=== PATIENT | female | born 1975 | race Two or more races ===

== ENCOUNTER 2018-05-04 06:18 | Day surgery (SDC) | payer OTHER ==
[2018-05-04] VITALS (11 sets, daily range): BP systolic 92–124; BP diastolic 54–73
[~2018-05-04] VITALS: Ht 162.6 cm; Wt 68.0 kg
[~2018-05-04 06:18] MED LIST: Clindamycin 600mg 50 ML IV ONE; NKM; celeBREX 200mg Cap **SURGERY PATIENTS ONLY ORAL ONE; oxyCONTIN 20mg tab ORAL ONE
--- NOTE | 2018-05-04 07:17 | Pre-Procedure Note/Attestation ---
Pre-Procedure Note/Attestation Complete Prior to Procedure Planned Procedure: right Procedure Narrative: knee arthroscopy acl reconstruction, possible medial menisectomy Attestation I attest that I discussed the nature of the procedure; its benefits; risks and complications; and alternatives (and the risks and benefits of such alternatives ), prior to the procedure, with the patient (or the patient's legal business office representative). I attest that, if there was a reasonable possibility of needing a blood transfusion, the patient (or the patient's legal business office representative) was given the [facility] standardized written summary, pursuant to the [place] Blood Safety Act ([place] Health and Safety Code # 1645, as amended). I attest that I re-evaluated the patient just prior to the surgery and that there has been no change in the patient's H&P, except as documented below: Mariusz Mars MD May 04, 2018 07:17
--- NOTE | 2018-05-04 07:19 | Operative Note - PDOC ---
Operative Note Operative Note Pre-op Diagnosis: right knee acl tear and medial meniscus tear Procedure: see op report Post-op Diagnosis: same as pre-op plus Operative Findings: consistent w/pre-op dx studies Anesthesia: general Specimen: none Complications: none Condition: stable Estimated Blood Loss: none Implant(s) used?: Yes Mariusz Mars MD May 04, 2018 07:18
[2018-05-04] MEDS ORDERED: EPINEPHrine 1mg/1ml Amp ONE ×2 (09:00→09:09)
[2018-05-04] MEDS ORDERED: Bupivacaine w/Epi 0.25% 30ml Vial INJ ONE ×3 (09:00→09:10)
[2018-05-04] MEDS ORDERED: Lidocaine 1% 10mg/ml/Epi 0.005mg/ml 30ml vial INJ ONE (09:00)
[2018-05-04] MEDS ORDERED: Ketorolac 30mg Inj ONE ×2 (09:00→09:09)
[2018-05-04] MEDS ORDERED: Morphine Sulfate PF 0 ML ONE ×2 (09:00→09:09)
[2018-05-04] MEDS ORDERED: Kenalog-40 1ml Vial ONE ×2 (09:00→09:09)
[2018-05-04] MEDS ORDERED: Bacitracin 50000 Units Vial ONE (09:01)
[2018-05-04] MEDS ORDERED: NeoSporin Gu Irrig 1ml Amp IRRIG ONE (09:01)
[2018-05-04] MEDS ORDERED: Midazolam 2mg/2ml Inj ONE (09:07)
[2018-05-04] MEDS ORDERED: fentaNYL 100 mcg/2 mL IV ONE ×2 (09:07→10:10)
[2018-05-04] MEDS ORDERED: Bupivacaine 0.5% Inj 30 ml vial INJ ONE (09:09)
[2018-05-04] MEDS ORDERED: Acetaminophen (Non formulary) 100 ML IV ONE (09:15)
[2018-05-04] MEDS ORDERED: Clindamycin 600mg 50 ML IV ONE (09:28)
[2018-05-04] MEDS ORDERED: Propofol 200mg/20ml IV ONE (09:49)
[2018-05-04] MEDS ORDERED: Metoclopramide 10mg/2ml Inj ONE (09:49)
[2018-05-04] MEDS ORDERED: Lidocaine 1% MPF 10mg/ml 5ml ONE (09:49)
--- NOTE | 2018-05-04 10:18 | Anethesia Preoperative Eval ---
Anesthesia Pre-op PMH/ROS General Date of Evaluation: May 04, 2018 Time of Evaluation: 09:50 Anesthesiologist: chasity ASA Score: ASA 1 Mallampati Score Class I : Soft palate, uvula, fauces, pillars visible Class II: Soft palate, uvula, fauces visible Class III: Soft palate, base of uvula visible Class IV: Only hard plate visible Mallampati Classification: Class II Surgeon: eddi Diagnosis: acl tear Surgical Procedure: right acl tear Anesthesia History: none Family History: no anesthesia problems Allergies: Coded Allergies: PENICILLINS (Verified Allergy, Severe, 05/03/18) skin rash SULFA (SULFONAMIDE ANTIBIOTICS) (Verified Allergy, Severe, 05/04/18) SKIN RASH Uncoded Allergies: SULFA (Allergy, Severe, 05/03/18) SKIN RASH Medications: see eMAR Patient NPO?: Yes NPO Date: May 03, 2018 NPO Time: 23:59 Past Medical History Cardiovascular: Denies: HTN, CAD, [place], valve dz, arrhythmia, other Pulmonary: Denies: asthma, COPD, ADDIS, other Gastrointestinal/Genitourinary: Denies: GERD, CRI, ESRD, other Neurologic/Psychiatric: Denies: dementia, CVA, depression/anxiety, TIA, other Endocrine: Denies: DM, hypothyroidism, steroids, other HEENT: Denies: cataract (L), cataract (R), glaucoma, [place] (L), [place] (R), other Hematology/Immune: Denies: anemia, DVT, bleeding disorder, other Musculoskeletal/Integumentary: Denies: OA, RA, DJD, DDD, edema, other PSxH Narrative: none Anesthesia Pre-op Phys. Exam Physician Exam Last Vital Signs Date Time Temp Pulse Resp B/P (MAP) Pulse Ox O2 Delivery O2 Flow Rate FiO2 05/04/18 07:32 97.1 50 20 92/54 99 Room Air 97.1 Constitutional: NAD Neurologic: CN 2-12 intact Cardiovascular: RRR Respiratory: CTA Gastrointestinal: S/NT/ND Airway Exam Mallampati Classification 2 Mallampati Score: Class II MO: full ROM: full Dentures: no upper, no lower Anesthesia Pre-op A/P Labs Urine Test Test 05/04/18 06:30 Urine HCG, Qualitative Negative (NEGATIVE) Studies Pre-op Studies: EKG - sr Risk Assessment & Plan Plan: general/block Status Change Before Surgery: No Pre-Antibiotics Drug: cleocin Given Within 1 Hr of Incision: Yes Time Given: 09:40 Bailee Nicolas CRNA May 04, 2018 10:18
[2018-05-04] MEDS: fentaNYL 100 mcg/2 mL IV PRN ×2 (11:46→12:12)
[2018-05-04] MEDS ORDERED: D5 1/2NS 1,000 ML IV SCH (14:01)
[2018-05-04] MEDS ORDERED: HYDROmorphone 1mg/ml Carpuject SUBQ PRN (14:01)
[2018-05-04] MEDS ORDERED: Tylenol #3 tab (300mg/30mg) ORAL PRN (14:01)
[2018-05-04] MEDS ORDERED: Norco 5mg/325mg tab ORAL PRN (14:01)
--- NOTE | 2018-05-04 17:37 | 48 Hour Post Anesthesia Eval ---
Post Anesthesia Evaluation Procedure: right acl repair Date of Evaluation: May 04, 2018 Time of Evaluation: 17:37 Blood Pressure Systolic: 107 0: 70 Pulse Rate: 65 Respiratory Rate: 14 O2 Sat by Pulse Oximetry: 98 Airway: patent Nausea: No Vomiting: No Hydration Status: adequate Cardiopulmonary Status: stable Mental Status/LOC: patient returned to baseline Follow-up Care/Observations: stable Post-Anesthesia Complications: none Follow-up care needed: N/A Bailee Nicolas WARD SUPERVISOR May 04, 2018 17:37
--- NOTE | 2018-05-04 17:39 | Immediate Post-Op Evaluation ---
Immediate Post-Op Evalulation Immediate Post-Op Evalulation Procedure: right acl repair Date of Evaluation: May 04, 2018 Time of Evaluation: 11:20 IV Fluids: 600 Blood Pressure Systolic: 104 Blood Pressure Diastolic: 70 Pulse Rate: 74 Respiratory Rate: 14 O2 Sat by Pulse Oximetry: 98 Temperature (Fahrenheit): 97.0 Pain Score (1-10): 5 Nausea: No Vomiting: No Complications none Patient Status: awake, reacts, patent Hydration Status: adequate Drug: cleocin Given Within 1 Hr of Incision: Yes Time Given: 09:40 Bailee Nicolas CRNA May 04, 2018 17:39
--- NOTE | 2018-05-04 22:30 | Operative Note - Dictated ---
DATE OF OPERATION: 05/04/2018 PREOPERATIVE DIAGNOSES: 1. Right knee ACL tear. 2. Right knee medial meniscus tear. POSTOPERATIVE DIAGNOSES: 1. Right knee ACL tear. 2. Right knee medial meniscus tear. PROCEDURES: 1. Right knee arthroscopic ACL reconstruction with tibialis anterior allograft. 2. Partial medial meniscectomy, medial meniscus. 3. Synovectomy/excision of fat pad, medial, lateral, and patellofemoral compartment. 4. Removal of intraarticular loose bodies. SURGEON: Mariusz Mars M.D. ANESTHESIA: Femoral adductor block with general. INDICATION FOR PROCEDURE: The patient is a pleasant female, who sustained an injury to her right knee. She was diagnosed with acute ACL tear with medial meniscus tear. She would need operative fixation after failed conservative treatment. Risks, limitations, expectations, and complications related to the procedure were discussed in detail including infection, stiffness, need for future surgery, risk of anesthesia, medical complications, DVT, PE, mortality risk including in the discussion were issues related to tibialis anterior allograft use. DESCRIPTION OF PROCEDURE: An informed consent was obtained, the patient was brought to the operating room. We placed the patient under monitored anesthesia. The right leg was prepped and draped in a sterile manner. Time-out was performed. The tibialis anterior allograft was then fashioned intentionally on back table. Examination under anesthesia showed positive Shyam test and positive reverse pivot shift. An inferolateral stab incision was then made. Trocar was introduced into the knee joint. There was a complex tear of the medial meniscus with fragments that were loose. Medial working portal was established and loose fragments were removed. Once that was done, the synovectomy and excision of fat pad of the medial compartment, intercondylar notch, and lateral compartment was performed. The ACL was completely disrupted and the stump of the remnants of the ACL were debrided. Once that was done, the medial compartment was entered and a partial medial meniscectomy was performed. Once the meniscectomy, excision of fat pad, synovectomy, and debridement of the ACL stump was performed, lateral compartment was entered. Lateral compartment was entered, free of any meniscal chondral damage. At this point, over the patellofemoral tendon tunnel guide was then placed and a femoral tunnel was prepared. Similarly, the tibial tunnel preparation guide was then placed and the proximal tibia was prepared. Once that was done, the tibialis anterior allograft was then passed through the tibial tunnel intercondylar notch lateral compartment. Once it was fashioned through a series of flexion and extension exercises, tibial interference screw was then placed. Once that was completed, the camera was repositioned and to make sure that the screw was not prominent into the joint. Once that was done, wound was copiously irrigated and skin was approximated with 2-0 Vicryl suture and 3-0 Monocryl suture. Steri-Strips and a sterile dressing were applied. The patient was awoken and taken to recovery room with stable vital signs. ESTIMATED BLOOD LOSS: None. COMPLICATIONS: None. SPECIMENS: None. IMPLANTS: Include tibialis anterior allograft, a Biomet ToggleLoc suture relay, and a tibial 10 x 30 interference screw. Mariusz Mars M.D. DR: DILCIA JOB#: [id number] CC:
== END 2018-05-04 13:55 | disposition home or self-care (01) ==
LOC: SUR 06:18
DX: S83.511A Sprain of anterior cruciate ligament of right knee, initial encounter (principal); M23.203 Derangement of unspecified medial meniscus due to old tear or injury, right knee; F41.9 Anxiety disorder, unspecified; Z88.0 Allergy status to penicillin; Z88.2 Allergy status to sulfonamides
CPT/HCPCS: 29881; 29888; 81025; C1713; J0171; J0690; J2250; J2405; J2704; J2765; J3010; 94003; 94150; S0077